=== PATIENT | female | born 1965 | race African-American/Black ===

== ENCOUNTER 2018-06-23 12:39 | Observation (INO) ==
[2018-06-23] MEDS ORDERED: Sod Chloride 0.9% Inj 1,000 ML IV.SIG ONE (12:56)
[2018-06-23] MEDS ORDERED: levETIRAcetam 1000mg/100mL Inj 100 ML IV.SIG ONE (12:58)
--- NOTE | 2018-06-23 13:14 | ED ---
HPI General Chief Complaint: Seizure Stated Complaint: seizure Time Seen by Provider: 06/23/18 12:47 Source: patient, family and RN notes reviewed Mode of arrival: wheelchair Limitations: no limitations History of Present Illness HPI Narrative: 53-year-old female presents to the emergency department for evaluation of seizures. Apparently, the patient had a seizure in triage. When she got to me, she is able to answer questions and get into the bed. The patient states that she has a history of seizures and is on Topamax and diazepam for seizures. Her son states that she recently moved from [place] and has been having intermittent seizures since Thursday. She also reports right-sided weakness since Thursday. Her son states that she went to the grocery store and came back limping on the right side. The patient reports history of lupus, seizures, TIAs. She takes a full aspirin daily. Patient is not following my commands at this time and is difficult to assess if she has any weakness. Moderate severity. MD complaint: Reports possible seizure Witnessed: yes - by other (Family) Trauma: No Seizure History: Reports known seizure disorder Place: home Related Data Home Medications Medication Instructions Recorded Confirmed albuterol sulfate [ProAir HFA] 2 puff INHALATION Q4H PRN 06/23/18 06/23/18 aspirin 325 mg PO DAILY 06/23/18 06/23/18 atorvastatin [Lipitor] 20 mg PO HS 06/23/18 06/23/18 uxcablaosh-ugdebqlcekhwr-moxb 1 cap PO Q4H PRN 06/23/18 06/23/18 [Fioricet] cholecalciferol (vitamin D3) 1,000 unit PO DAILY 06/23/18 06/23/18 [Vitamin D3] cyanocobalamin (vitamin B-12) 500 mcg PO DAILY 06/23/18 06/23/18 [Vitamin B-12] diazepam [Valium] 2 mg PO TID 06/23/18 06/23/18 duloxetine [Cymbalta] 60 mg PO DAILY 06/23/18 06/23/18 folic acid 0.8 mg PO DAILY 06/23/18 06/23/18 ibuprofen 800 mg PO TID 06/23/18 06/23/18 meloxicam [Mobic] 15 mg PO DAILY 06/23/18 06/23/18 montelukast [Singulair] 10 mg PO QPM 06/23/18 06/23/18 omeprazole 20 mg PO DAILY 06/23/18 06/23/18 oxycodone 10 mg PO QID 06/23/18 06/23/18 potassium 99 mg PO DAILY 06/23/18 06/23/18 pregabalin [Lyrica] 100 mg PO TID 06/23/18 06/23/18 rizatriptan 10 mg PO Q2-4H PRN 06/23/18 06/23/18 sucralfate [Carafate] 1 g PO TID 06/23/18 06/23/18 tizanidine 4 mg PO Q8HR 06/23/18 06/23/18 tofacitinib [Xeljanz] 5 mg PO BID 06/23/18 06/23/18 topiramate [Topamax] 300 mg PO TID 06/23/18 06/23/18 trazodone 100 mg PO HS 06/23/18 06/23/18 Allergies Allergy/AdvReac Type Severity Reaction Status Date / Time Fish Containing Products Allergy Severe Unverified 03/24/17 21:52 milk Allergy Severe INTOLERANCE Unverified 03/24/17 21:52 Review of Systems ROS: all other systems reviewed are negative PMFSH Medical History Medical History Seizure disorder (Acute) Social History Social History Substance History: No History of Abuse Second Hand Smoke Exposure: Yes Smoking Status: Current every day smoker Tobacco Type: Cigarettes How Often Do You Have a Drink Containing Alcohol: Never Recent Travel in [facility] within the Last 8 Weeks: No Recent Out of Country Travel within the Last 8 Weeks: No Immunization History Tetanus Immunization: Unsure Exam Narrative Exam Narrative: GENERAL: Well-nourished, well-developed female patient, afebrile. SKIN: Focused skin assessment warm/dry. HEAD: Normocephalic. Atraumatic. EYES: No scleral icterus. No injection or drainage. NECK: Supple, trachea midline. No JVD or lymphadenopathy. CARDIOVASCULAR: Regular rate and rhythm without murmurs, gallops, or rubs. RESPIRATORY: Breath sounds equal bilaterally. No accessory muscle use. Lung sounds are clear to auscultation. GASTROINTESTINAL: Abdomen soft, non-tender, nondistended. MUSCULOSKELETAL: No cyanosis, or edema. Patient will not follow commands, unable to determine strength. BACK: Nontender without obvious deformity. No CVA tenderness. Course Initial Documented Vital Signs Temperature 97.9 F 06/23/18 12:43 Pulse Rate 61 06/23/18 12:43 Respiratory Rate 15 06/23/18 12:43 Blood Pressure 137/72 06/23/18 12:43 Pulse Oximetry 98 06/23/18 12:43 Last Documented Vital Signs Temperature 97.9 F 06/23/18 12:43 Pulse Rate 65 06/23/18 12:56 Respiratory Rate 18 06/23/18 12:56 Blood Pressure 137/72 06/23/18 12:43 Pulse Oximetry 99 06/23/18 12:56 Medical Decision Making MDM Narrative Medical decision making narrative: 53-year-old female presents to the emergency department for evaluation of intermittent seizures since Thursday and right- sided weakness since Thursday. Patient was given Ativan 1 mg IV. After he left the exam room, the nurse reported the patient began to have another seizure again. However, she is able to talk and answer questions during the seizure requested more Ativan. When she was concerned that she is already given a dose of Ativan, she stopped seizing. Seizure versus pseudoseizure. EKG shows SR, HR 60, no acute ST changes. CBC is unremarkable. CMP shows no acute abnormality. Magnesium is 1.9. CK is 104. Troponin is less than 0.02. UA is negative. UDS is positive for barbiturates and benzodiazepines. CT of the head is negative. Patient will be admitted for right sided weakness, seizure vs. pseudoseizure. Medical Screen Exam Complete: Yes Emergency Medical Condition: Yes Lab Data Result diagrams: 06/23/18 13:00 06/23/18 13:00 Lab Results 06/23/18 06/23/18 06/23/18 Range/Units 13:00 13:00 13:00 WBC 6.8 (4.0-11.0) th/mm3 RBC 4.21 (4.00-5.30) mil/mm3 Hgb 11.7 (11.6-15.3) gm/dL Hct 36.5 (35.0-46.0) % MCV 86.6 (80.0-100.0) fL MCH 27.9 (27.0-34.0) pg MCHC 32.2 (32.0-36.0) % RDW 15.9 (11.6-17.2) % Plt Count 195 (150-450) th/mm3 MPV 9.8 (7.0-11.0) fL Neut % (Auto) 71.2 H (16.0-70.0) % Lymph % (Auto) 20.1 (9.0-44.0) % [place] % (Auto) 7.5 (0.0-8.0) % Eos % (Auto) 0.8 (0.0-4.0) % Baso % (Auto) 0.4 (0.0-2.0) % Neut # (Auto) 4.8 (1.8-7.7) th/mm3 Lymph # (Auto) 1.4 (1.0-4.8) th/mm3 [place] # (Auto) 0.5 (0.0-0.9) th/mm3 Eos # (Auto) 0.1 (0.0-0.4) th/mm3 Baso # (Auto) 0.0 (0.0-0.2) th/mm3 WBC Differential . Differential Comment Auto diff final Sodium 144 (136-145) meq/L Potassium 3.9 (3.5-5.1) meq/L Chloride 112 H (98-107) meq/L Carbon Dioxide 24.9 (21.0-32.0) meq/L Anion Gap 7 (5-15) meq/L BUN 12 (7-18) mg/dL Creatinine 0.96 (0.50-1.00) mg/dL Estimated GFR 74 L (>89) mL/min Random Glucose 84 (74-106) mg/dL Calcium 8.1 L (8.5-10.1) mg/dL Magnesium 1.9 (1.5-2.5) mg/dL Total Bilirubin 0.2 (0.2-1.0) mg/dL AST 13 L (15-37) U/L ALT 13 (10-53) U/L Alkaline Phosphatase 114 (45-117) U/L Total Creatine Kinase 104 (26-192) U/L CK-MB (CK-2) Less than 1.0 (0.5-3.6) ng/mL Troponin I Less than 0.02 L (0.02-0.05) ng/mL Total Protein 7.2 (6.4-8.2) g/dL Albumin 3.6 (3.4-5.0) g/dL Urine Color (Yellw/Straw) Urine Clarity (Clear) Urine pH (5.0-8.5) Ur Specific [place] (1.002-1.035) Urine Protein (Neg-Trace) mg/dL Urine Glucose (UA) (Negative) mg/dL Urine Ketones (Negative) mg/dL Urine Occult Blood (Negative) Urine Nitrate (Negative) Urine Bilirubin (Negative) Urine Urobilinogen (Less than 2) mg/dL Ur Leukocyte Esterase (Negative) Urine RBC (0-3) /hpf Urine WBC (0-5) /hpf Ur Squamous Epith Cells (0-5) /hpf Urine Mucus (Occasional) /lpf Ur Microscopic Review Urine Opiates Screen (Neg) Ur Barbiturates Screen (Neg) Ur Amphetamines Screen (Neg) U Benzodiazepines Scrn (Neg) Urine Cocaine Screen (Neg) U Cannabinoids Screen (Neg) 06/23/18 06/23/18 Range/Units 13:57 13:57 WBC (4.0-11.0) th/mm3 RBC (4.00-5.30) mil/mm3 Hgb (11.6-15.3) gm/dL Hct (35.0-46.0) % MCV (80.0-100.0) fL MCH (27.0-34.0) pg MCHC (32.0-36.0) % RDW (11.6-17.2) % Plt Count (150-450) th/mm3 MPV (7.0-11.0) fL Neut % (Auto) (16.0-70.0) % Lymph % (Auto) (9.0-44.0) % [place] % (Auto) (0.0-8.0) % Eos % (Auto) (0.0-4.0) % Baso % (Auto) (0.0-2.0) % Neut # (Auto) (1.8-7.7) th/mm3 Lymph # (Auto) (1.0-4.8) th/mm3 [place] # (Auto) (0.0-0.9) th/mm3 Eos # (Auto) (0.0-0.4) th/mm3 Baso # (Auto) (0.0-0.2) th/mm3 WBC Differential Differential Comment Sodium (136-145) meq/L Potassium (3.5-5.1) meq/L Chloride (98-107) meq/L Carbon Dioxide (21.0-32.0) meq/L Anion Gap (5-15) meq/L BUN (7-18) mg/dL Creatinine (0.50-1.00) mg/dL Estimated GFR (>89) mL/min Random Glucose (74-106) mg/dL Calcium (8.5-10.1) mg/dL Magnesium (1.5-2.5) mg/dL Total Bilirubin (0.2-1.0) mg/dL AST (15-37) U/L ALT (10-53) U/L Alkaline Phosphatase (45-117) U/L Total Creatine Kinase (26-192) U/L CK-MB (CK-2) (0.5-3.6) ng/mL Troponin I (0.02-0.05) ng/mL Total Protein (6.4-8.2) g/dL Albumin (3.4-5.0) g/dL Urine Color Yellow (Yellw/Straw) Urine Clarity Clear (Clear) Urine pH 5.0 (5.0-8.5) Ur Specific [place] 1.013 (1.002-1.035) Urine Protein Negative (Neg-Trace) mg/dL Urine Glucose (UA) Negative (Negative) mg/dL Urine Ketones Negative (Negative) mg/dL Urine Occult Blood Negative (Negative) Urine Nitrate Negative (Negative) Urine Bilirubin Negative (Negative) Urine Urobilinogen 2.0 H (Less than 2) mg/dL Ur Leukocyte Esterase Negative (Negative) Urine RBC Less than 1 (0-3) /hpf Urine WBC 1 (0-5) /hpf Ur Squamous Epith Cells <1 (0-5) /hpf Urine Mucus Few H (Occasional) /lpf Ur Microscopic Review Not Reportable Urine Opiates Screen Neg (Neg) Ur Barbiturates Screen Pos H (Neg) Ur Amphetamines Screen Neg (Neg) U Benzodiazepines Scrn Pos H (Neg) Urine Cocaine Screen Neg (Neg) U Cannabinoids Screen Neg (Neg) Imaging Data Radiologist's impression: Head CT 06/23/18 12:56 CONCLUSION: Negative noncontrast head CT. . Discharge Plan Discharge Disposition Patient Disposition: 30 Still Patient Discharge Details Diagnosis: Right sided weakness, Seizure Physicians Team ED Provider: Francois Fan ED Midlevel Provider: Lara Schroeder Primary Care Provider: Palak Caraballo Rxs /Orders / Referrals /Forms Prescriptions: No Action atorvastatin [Lipitor] 20 mg Tablet 20 mg PO HS RF: 0 aspirin 325 mg Tablet 325 mg PO DAILY RF: 0 ibuprofen 800 mg Tablet 800 mg PO TID RF: 0 tizanidine 4 mg Tablet 4 mg PO Q8HR RF: 0 meloxicam [Mobic] 15 mg Tablet 15 mg PO DAILY RF: 0 sucralfate [Carafate] 1 gram Tablet 1 g PO TID RF: 0 rizatriptan 10 mg Tablet 10 mg PO Q2-4H PRN (Reason: Migraine) RF: 0 potassium 99 mg Tablet 99 mg PO DAILY RF: 0 cyanocobalamin (vitamin B-12) [Vitamin B-12] 500 mcg Tablet 500 mcg PO DAILY RF: 0 trazodone 100 mg Tablet 100 mg PO HS RF: 0 diazepam [Valium] 2 mg Tablet 2 mg PO TID RF: 0 montelukast [Singulair] 10 mg Tablet 10 mg PO QPM RF: 0 albuterol sulfate [ProAir HFA] 90 mcg/actuation Hfa Aerosol Inhaler 2 puff INHALATION Q4H PRN (Reason: Shortness Of Breath Or Wheezing) RF: 0 topiramate [Topamax] 100 mg Tablet 300 mg PO TID RF: 0 folic acid 800 mcg Tablet 0.8 mg PO DAILY RF: 0 duloxetine [Cymbalta] 60 mg Capsule,Delayed Release(Dr/Ec) 60 mg PO DAILY RF: 0 pregabalin [Lyrica] 100 mg Capsule 100 mg PO TID RF: 0 cholecalciferol (vitamin D3) [Vitamin D3] 1,000 unit Tablet 1,000 unit PO DAILY RF: 0 omeprazole 20 mg Tablet,Delayed Release (Dr/Ec) 20 mg PO DAILY RF: 0 oxycodone 10 mg Tablet 10 mg PO QID RF: 0 mlgancbfnd-qcjwkgyvhiqyn-pzer [Fioricet] 50-300-40 mg Capsule 1 cap PO Q4H PRN (Reason: Migraine Headache) RF: 0 tofacitinib [Xeljanz] 5 mg Tablet 5 mg PO BID RF: 0 Status ED Status: Admitted Observation Patient
[2018-06-23 13:29] LABS: Baso % (Auto) 0.4 % (0.0-2.0); Eos # (Auto) 0.1 th/mm3 (0.0-0.4); Eos % (Auto) 0.8 % (0.0-4.0); Hematocrit 36.5 % (35.0-46.0); Hemoglobin 11.7 gm/dL (11.6-15.3); Lymph # (Auto) 1.4 th/mm3 (1.0-4.8); Lymph % (Auto) 20.1 % (9.0-44.0); Mean Corpuscular HGB Conc 32.2 % (32.0-36.0); Mean Corpuscular Hemoglobin 27.9 pg (27.0-34.0); Mean Corpuscular Volume 86.6 fL (80.0-100.0); Mean Platelet Volume 9.8 fL (7.0-11.0); Mono # (Auto) 0.5 th/mm3 (0.0-0.9); Mono % (Auto) 7.5 % (0.0-8.0); Neut # (Auto) 4.8 th/mm3 (1.8-7.7); Neut % (Auto) 71.2 % (16.0-70.0); Platelet Count 195 th/mm3 (150-450); Red Blood Count 4.21 mil/mm3 (4.00-5.30); Red Cell Distribution Width 15.9 % (11.6-17.2); White Blood Count 6.8 th/mm3 (4.0-11.0)
--- NOTE | 2018-06-23 13:37 | CT ---
EXAM DATE: 06/23/2018 1:31 PM EST AGE/SEX: 53 years / Female INDICATIONS: Seizure. CLINICAL DATA: This is the patient's initial encounter. Patient reports that signs and symptoms have been present for 4 - 6 days and indicates a pain score of 8/10. MEDICAL/SURGICAL HISTORY: Seizures. None. RADIATION DOSE: 56.35 CTDI (mGy) COMPARISON: No prior exams available for comparison. TECHNIQUE: CT of the head without contrast. Using automated exposure control and adjustment of the mA and/or kV according to patient size, radiation dose was kept as low as reasonably achievable to ob tain optimal diagnostic quality images. DICOM format image data is available electronically for revi ew and comparison. FINDINGS: Cerebrum: The ventricles are normal for age. No evidence of midline shift, mass lesion, hemorrhage or acute infarction. No extraaxial fluid collections are seen. Posterior Fossa: The cerebellum and brainstem are intact. The 4th ventricle is midline. The cerebe llopontine angle is unremarkable. Extracranial: The visualized portion of the orbits is intact. Skull: The calvaria is intact. No evidence of skull fracture. CONCLUSION: Negative noncontrast head CT. . Electronically signed by: Jessee Jones MD 06/23/2018 1:36 PM EST
[2018-06-23 13:47] LABS: Alanine Aminotransferase 13 U/L (10-53); Albumin 3.6 g/dL (3.4-5.0); Anion Gap 7 meq/L (5-15); Aspartate Aminotransferase 13 U/L (15-37); Blood Urea Nitrogen 12 mg/dL (7-18); Calcium 8.1 mg/dL (8.5-10.1); Carbon Dioxide 24.9 meq/L (21.0-32.0); Chloride 112 meq/L (98-107); Glomerular Filtration Rate 74 mL/min (>89); Glucose,Random 84 mg/dL (74-106); Sodium 144 meq/L (136-145)
[2018-06-23 13:48] LABS: Potassium 3.9 meq/L (3.5-5.1)
[2018-06-23 14:12] LABS: Alkaline Phosphatase 114 U/L (45-117); Creatine Kinase 104 U/L (26-192); Total Protein 7.2 g/dL (6.4-8.2)
[2018-06-23 14:30] LABS: Bilirubin,Urine Negative (Negative); Clarity,Urine Clear (Clear); Color,Urine Yellow (Yellw/Straw); Glucose,Urine (UA) Negative (Negative); Leukocyte Esterase,Urine Negative (Negative); Mucus,Urine Few /lpf (Occasional); Nitrite,Urine Negative (Negative); Specific Gravity,Urine 1.013 (1.002-1.035); Squamous Epithelial Cell,Urine <1 /hpf (0-5)
[2018-06-23 14:34] LABS: Amphetamine Screen,Urine Neg (Neg); Barbiturate Screen,Urine Pos (Neg); Cannabinoid Screen,Urine Neg (Neg); Cocaine Screen,Urine Neg (Neg)
[2018-06-23 14:40] LABS: Opiate Screen,Urine Neg (Neg)
--- NOTE | 2018-06-23 17:49 | P.HP ---
History of Present Illness Service: [facility] service Primary Care Physician: Palak Caraballo MD Chief Complaint: reported SZ History of Present Illness: Patient is a 53-year-old right-handed female with history of chronic pain, history of fibromyalgia, history of migraine headaches, history of hyperlipidemia, history of seizure disorder, history of lupus arthritis, who presented to the ER brought in by son for reported multiple episodes of seizures. Patient states this has been going on since Thursday. And denies any fever chills headache nausea vomiting. Patient states also on chronic pain and states that run out of her pain meds. Her primary care physician is Dr. Caraballo. Her plate painter apprentice Dr. Hurtado apparently discharged her from their practice recently. Patient at bedside is awake alert pretty independent up and ambulating with a walker with a cane along the hallway. Baseline had right upper extremity sided weakness with history of TIAs in the past. Patient now mainly asking for some pain meds. When we told about her about getting some workup states he had it done before and all everything was negative. Patient admitted overnight for observation. Home meds includes diazepam 2 mg as needed for seizure Diarrhea, 100 mg 3 times a day Trazodone 100 mg daily at bedtime Meloxicam 15 mg daily Montelukast 10 mg Pro-air 2 puffs every 6 Advair Fioricet Topamax Oxycodone 10 mg 4 times a day Zanaflex 4 mg every 8 Cymbalta 60 mg for fibromyalgia Omeprazole Folic acid Vitamin B12 Atorvastatin Aspirin Potassium Sucralfate Review of Systems Patient denies any fever denies any neck pain or nausea vomiting bowel movements regular denies any melena or hematochezia no incontinence baseline with right-sided weakness and ambulates with a cane PMFSH - History History Provided By: Patient - Medical History Medical History: Medical History (Last Updated 06/23/18 @ 12:57 by Priya Mancia RN) Seizure disorder - Tobacco History Second Hand Smoke Exposure: Yes Tobacco Use In Past 30 Days: Yes Smoking Status: Current every day smoker Tobacco Type: Cigarettes - Alcohol History How Often Do You Have a Drink Containing Alcohol: Never - Substance Use History Substance History: No History of Abuse - Travel History Recent Travel in the [place] Within the Last 8 Weeks: No Recent Travel Out of the Country Within the Last 8 Weeks: No - Immunization History Tetanus Immunization: Unsure Medications and Allergies Active Medications: Active Medications Sodium Chloride (Ns Flush) 2 ml IV.FLUSH PRN PRN PRN Reason: FLUSH AFTER USING IV ACCESS Allergies Allergy/AdvReac Type Severity Reaction Status Date / Time Fish Containing Products Allergy Severe Anaphylaxis Verified 06/24/18 14:17 milk Allergy Severe INTOLERANCE Verified 06/24/18 14:17 Home Medications Medication Instructions Recorded Confirmed Type albuterol sulfate [ProAir HFA] 2 puff INHALATION Q4H PRN 06/23/18 06/23/18 History aspirin 325 mg PO DAILY 06/23/18 06/23/18 History atorvastatin [Lipitor] 20 mg PO HS 06/23/18 06/23/18 History unecxgqvln-mgshnbwjbfqzp-bzma 1 cap PO Q4H PRN 06/23/18 06/23/18 History [Fioricet] cholecalciferol (vitamin D3) 1,000 unit PO DAILY 06/23/18 06/23/18 History [Vitamin D3] cyanocobalamin (vitamin B-12) 500 mcg PO DAILY 06/23/18 06/23/18 History [Vitamin B-12] diazepam [Valium] 2 mg PO TID 06/23/18 06/23/18 History duloxetine [Cymbalta] 60 mg PO DAILY 06/23/18 06/23/18 History folic acid 0.8 mg PO DAILY 06/23/18 06/23/18 History ibuprofen 800 mg PO TID 06/23/18 06/23/18 History meloxicam [Mobic] 15 mg PO DAILY 06/23/18 06/23/18 History montelukast [Singulair] 10 mg PO QPM 06/23/18 06/23/18 History omeprazole 20 mg PO DAILY 06/23/18 06/23/18 History oxycodone 10 mg PO QID 06/23/18 06/23/18 History potassium 99 mg PO DAILY 06/23/18 06/23/18 History pregabalin [Lyrica] 100 mg PO TID 06/23/18 06/23/18 History rizatriptan 10 mg PO Q2-4H PRN 06/23/18 06/23/18 History sucralfate [Carafate] 1 g PO TID 06/23/18 06/23/18 History tizanidine 4 mg PO Q8HR 06/23/18 06/23/18 History tofacitinib [Xeljanz] 5 mg PO BID 06/23/18 06/23/18 History topiramate [Topamax] 100 mg PO TID 06/23/18 06/23/18 History trazodone 100 mg PO HS 06/23/18 06/23/18 History Exam Vital signs: Vital Signs 06/23/18 12:43 06/23/18 12:56 06/23/18 16:00 Temperature 97.9 F 98.4 F Pulse Rate 61 65 53 L Respiratory Rate 15 18 12 Blood Pressure 137/72 140/67 Pulse Oximetry 98 99 98 Intake & Output 06/22/18 06/23/18 06/23/18 18:59 06:59 18:59 Intake Total 1000 / 1000 Balance 1000 / 1000 Weight 83.915 kg Intake: IV 1000 / 1000 NS Inj 1,000 ML @ Wide Open IV. 1000 / 1000 SIG BOLUS ONE Rx#:[id number] Narrative: Awake alert oriented x3 speech clear Anicteric sclerae pink palpebral conjunctivae No temporal tenderness Neck supple no nuchal rigidity Chest lungs bilateral breath sounds equal no rales Regular rhythm Abdomen soft good bowel sounds Extremities no edema no cyanosis no clubbing Neurologic exam ANO x3 clear speech Cranial nerves grossly intact Motor mild right-sided weakness 4/5 Gait ambulating along the hallway with a cane steady Results - Labs CBC & Chem 7: 06/23/18 13:00 06/25/18 05:58 Labs: Laboratory Results - last 24 hr 06/23/18 06/23/18 06/23/18 13:00 13:00 13:00 WBC 6.8 RBC 4.21 Hgb 11.7 Hct 36.5 MCV 86.6 MCH 27.9 MCHC 32.2 RDW 15.9 Plt Count 195 MPV 9.8 Neut % (Auto) 71.2 H Lymph % (Auto) 20.1 Lane % (Auto) 7.5 Eos % (Auto) 0.8 Baso % (Auto) 0.4 Neut # (Auto) 4.8 Lymph # (Auto) 1.4 Lane # (Auto) 0.5 Eos # (Auto) 0.1 Baso # (Auto) 0.0 WBC Differential . Differential Comment Auto diff final Sodium 144 Potassium 3.9 Chloride 112 H Carbon Dioxide 24.9 Anion Gap 7 BUN 12 Creatinine 0.96 Estimated GFR 74 L Random Glucose 84 Calcium 8.1 L Magnesium 1.9 Total Bilirubin 0.2 AST 13 L ALT 13 Alkaline Phosphatase 114 Total Creatine Kinase 104 CK-MB (CK-2) Less than 1.0 Troponin I Less than 0.02 L Total Protein 7.2 Albumin 3.6 Urine Color Urine Clarity Urine pH Ur Specific [place] Urine Protein Urine Glucose (UA) Urine Ketones Urine Occult Blood Urine Nitrate Urine Bilirubin Urine Urobilinogen Ur Leukocyte Esterase Urine RBC Urine WBC Ur Squamous Epith Cells Urine Mucus Ur Microscopic Review Urine Opiates Screen Ur Barbiturates Screen Ur Amphetamines Screen U Benzodiazepines Scrn Urine Cocaine Screen U Cannabinoids Screen 06/23/18 06/23/18 13:57 13:57 WBC RBC Hgb Hct MCV MCH MCHC RDW Plt Count MPV Neut % (Auto) Lymph % (Auto) Lane % (Auto) Eos % (Auto) Baso % (Auto) Neut # (Auto) Lymph # (Auto) Lane # (Auto) Eos # (Auto) Baso # (Auto) WBC Differential Differential Comment Sodium Potassium Chloride Carbon Dioxide Anion Gap BUN Creatinine Estimated GFR Random Glucose Calcium Magnesium Total Bilirubin AST ALT Alkaline Phosphatase Total Creatine Kinase CK-MB (CK-2) Troponin I Total Protein Albumin Urine Color Yellow Urine Clarity Clear Urine pH 5.0 Ur Specific [place] 1.013 Urine Protein Negative Urine Glucose (UA) Negative Urine Ketones Negative Urine Occult Blood Negative Urine Nitrate Negative Urine Bilirubin Negative Urine Urobilinogen 2.0 H Ur Leukocyte Esterase Negative Urine RBC Less than 1 Urine WBC 1 Ur Squamous Epith Cells <1 Urine Mucus Few H Ur Microscopic Review Not Reportable Urine Opiates Screen Neg Ur Barbiturates Screen Pos H Ur Amphetamines Screen Neg U Benzodiazepines Scrn Pos H Urine Cocaine Screen Neg U Cannabinoids Screen Neg - Imaging Impressions Head CT 06/23/18 12:56 CONCLUSION: Negative noncontrast head CT. . Caprini VTE Risk Assessment Caprini VTE Risk Assessment: No/Low Risk (score <= 1) Caprini Risk Assessment Model: Point Value = 1 Point Value = 2 Point Value = 3 Point Value = 5 Age 41-60 Minor surgery BMI > 25 kg/m2 Swollen legs Varicose veins or History of unexplained or recurrent spontaneous Oral contraceptives or hormone replacement Sepsis (< 1 month) Serious lung disease, including pneumonia (< 1 month) Abnormal pulmonary function Acute myocardial infarction Congestive heart failure (< 1 month) History of inflammatory bowel disease Medical patient at bed rest Age 61-74 Arthroscopic surgery Major open surgery (> 45 min) Laparoscopic surgery (> 45 min) Malignancy Confined to bed (> 72 hours) Immobilizing plaster cast Central venous access Age >= 75 History of VTE Family history of VTE Factor V Leiden Prothrombin [id number] Lupus anticoagulant Anticardiolipin antibodies Elevated serum homocysteine Heparin-induced thrombocytopenia Other congenital or acquired thrombophilia Stroke (< 1 month) Elective arthroplasty Hip, pelvis, or leg fracture Acute spinal cord injury (< 1 month) Prophylaxis Regimen: Total Risk Factor Score Risk Level Prophylaxis Regimen 0-1 Low Early ambulation 2 Moderate Order ONE of the following: *Sequential Compression Device (SCD) *Heparin 5000 units SQ BID 3-4 Higher Order ONE of the following medications: *Heparin 5000 units SQ TID *Enoxaparin/Lovenox 40 mg SQ daily (WT < 150 kg, CrCl > 30 mL/min) *Enoxaparin/Lovenox 30 mg SQ daily (WT < 150 kg, CrCl > 10-29 mL/min) *Enoxaparin/Lovenox 30 mg SQ BID (WT < 150 kg, CrCl > 30 mL/min) AND/OR *Sequential Compression Device (SCD) 5 or more Highest Order ONE of the following medications: *Heparin 5000 units SQ TID (Preferred with Epidurals) *Enoxaparin/Lovenox 40 mg SQ daily (WT < 150 kg, CrCl > 30 mL/min) *Enoxaparin/Lovenox 30 mg SQ daily (WT < 150 kg, CrCl > 10-29 mL/min) *Enoxaparin/Lovenox 30 mg SQ BID (WT < 150 kg, CrCl > 30 mL/min) AND *Sequential Compression Device (SCD) Assessment and Plan - Plan 53-year-old female presenting with Multiple seizure questionable pseudoseizures MId right sided weakness on exam- per patient this is near baseline Neurology consult Neurochecks. Get an MRI of the brain, check an EEG, History of migraine headaches continue meds History of lupus/chronic pain Continue on oxycodone as needed History of asthma/hyperreactive airway disease in remission Continue on inhalers. PT eval. If stable DC in a.m.-
--- NOTE | 2018-06-23 21:56 | MR ---
EXAM DATE: 06/23/2018 9:40 PM EST AGE/SEX: 53 years / Female INDICATIONS: Seizures. CLINICAL DATA: This is the patient's initial encounter. Patient reports that signs and symptoms have been present for 4 - 6 days and indicates a pain score of 0/10. MEDICAL/SURGICAL HISTORY: Hypertension. Lupus, Fibromyalgia, DM, Seizure, Asthma Hysterectomy. Bariatric, Cervical fusion, lumbar, Nerve ablation (lumbar) COMPARISON: [facility] – [place] HEAD W/O CONTRAST, 06/23/2018. . TECHNIQUE: Multiplanar, multisequence examination of the brain was performed without contrast. FINDINGS: The patient had a seizure during the scan, before all sequences were acquired. The study was termina katie at that point. The images that were acquired are of diagnostic quality and include T1 sagittal, F LAIR axial, T2 axial, and diffusion axial. The ventricles are normal in size. No evidence of midline shift. No evidence of cerebral edema or mas s effect. There are some scattered areas of T2 prolongation in the subcortical mid and high convexity white matter, nonspecific in appearance. No focal areas of restricted diffusion. The posterior fossa structures are grossly unremarkable. The pituitary gland is normal size. CONCLUSION: 1. Negative limited sequence noncontrast MRI of the brain. 2. The patient had a seizure during the scan and the study was terminated at that point. Electronically signed by: Hossein Dickerson MD 06/23/2018 9:55 PM EST
--- NOTE | 2018-06-23 22:01 | P.PN ---
Physical Exam Vital signs: Vital Signs 06/23/18 12:43 06/23/18 12:56 06/23/18 16:00 Temperature 97.9 F 98.4 F Pulse Rate 61 65 53 L Respiratory Rate 15 18 12 Blood Pressure 137/72 140/67 Pulse Oximetry 98 99 98 06/23/18 19:50 Temperature 98.1 F Pulse Rate 61 Respiratory Rate 14 Blood Pressure 132/76 Pulse Oximetry 99 Intake & Output 06/23/18 06/23/18 06/24/18 06:59 18:59 06:59 Intake Total 1000 / 1000 Balance 1000 / 1000 Weight 83.915 kg Intake: IV 1000 / 1000 NS Inj 1,000 ML @ Wide Open IV. 1000 / 1000 SIG BOLUS ONE Rx#:[id number] Other: # Voids 1 Narrative: Awake alert oriented x3 speech clear Anicteric sclerae pink palpebral conjunctivae No temporal tenderness Neck supple no nuchal rigidity Chest lungs bilateral breath sounds equal no rales Regular rhythm Abdomen soft good bowel sounds Extremities no edema no cyanosis no clubbing Neurologic exam ANO x3 clear speech Cranial nerves grossly intact Motor mild right-sided weakness 4/5 Gait ambulating along the hallway with a cane steady Results - Labs CBC & Chem 7: 06/23/18 13:00 06/23/18 13:00 Laboratory Results - last 24 hr 06/23/18 06/23/18 06/23/18 13:00 13:00 13:00 WBC 6.8 RBC 4.21 Hgb 11.7 Hct 36.5 MCV 86.6 MCH 27.9 MCHC 32.2 RDW 15.9 Plt Count 195 MPV 9.8 Neut % (Auto) 71.2 H Lymph % (Auto) 20.1 [place] % (Auto) 7.5 Eos % (Auto) 0.8 Baso % (Auto) 0.4 Neut # (Auto) 4.8 Lymph # (Auto) 1.4 [place] # (Auto) 0.5 Eos # (Auto) 0.1 Baso # (Auto) 0.0 WBC Differential . Differential Comment Auto diff final Sodium 144 Potassium 3.9 Chloride 112 H Carbon Dioxide 24.9 Anion Gap 7 BUN 12 Creatinine 0.96 Estimated GFR 74 L Random Glucose 84 Calcium 8.1 L Magnesium 1.9 Total Bilirubin 0.2 AST 13 L ALT 13 Alkaline Phosphatase 114 Total Creatine Kinase 104 CK-MB (CK-2) Less than 1.0 Troponin I Less than 0.02 L Total Protein 7.2 Albumin 3.6 Urine Color Urine Clarity Urine pH Ur Specific [place] Urine Protein Urine Glucose (UA) Urine Ketones Urine Occult Blood Urine Nitrate Urine Bilirubin Urine Urobilinogen Ur Leukocyte Esterase Urine RBC Urine WBC Ur Squamous Epith Cells Urine Mucus Ur Microscopic Review Urine Opiates Screen Ur Barbiturates Screen Ur Amphetamines Screen U Benzodiazepines Scrn Urine Cocaine Screen U Cannabinoids Screen 06/23/18 06/23/18 13:57 13:57 WBC RBC Hgb Hct MCV MCH MCHC RDW Plt Count MPV Neut % (Auto) Lymph % (Auto) [place] % (Auto) Eos % (Auto) Baso % (Auto) Neut # (Auto) Lymph # (Auto) [place] # (Auto) Eos # (Auto) Baso # (Auto) WBC Differential Differential Comment Sodium Potassium Chloride Carbon Dioxide Anion Gap BUN Creatinine Estimated GFR Random Glucose Calcium Magnesium Total Bilirubin AST ALT Alkaline Phosphatase Total Creatine Kinase CK-MB (CK-2) Troponin I Total Protein Albumin Urine Color Yellow Urine Clarity Clear Urine pH 5.0 Ur Specific [place] 1.013 Urine Protein Negative Urine Glucose (UA) Negative Urine Ketones Negative Urine Occult Blood Negative Urine Nitrate Negative Urine Bilirubin Negative Urine Urobilinogen 2.0 H Ur Leukocyte Esterase Negative Urine RBC Less than 1 Urine WBC 1 Ur Squamous Epith Cells <1 Urine Mucus Few H Ur Microscopic Review Not Reportable Urine Opiates Screen Neg Ur Barbiturates Screen Pos H Ur Amphetamines Screen Neg U Benzodiazepines Scrn Pos H Urine Cocaine Screen Neg U Cannabinoids Screen Neg - Imaging Impressions Head MRI 06/23/18 00:00 CONCLUSION: 1. Negative limited sequence noncontrast MRI of the brain. 2. The patient had a seizure during the scan and the study was terminated at that point. Head CT 06/23/18 12:56 CONCLUSION: Negative noncontrast head CT. . - Procedures none Assessment and Plan - Plan 53-year-old female presenting with Recurrent seizure vs pseudoseizures Neurology consult Neurochecks. Sz precautions Unremarkable MRI of the brain, check an EEG, Ct trileptal. Alesia did not work for her in the past History of migraine headaches continue meds History of lupus/chronic pain Continue on oxycodone as needed(claims she is on this med). Eforcse queried prescribed Fioricet #90 05/29/18 and Diazepam 2 mg #120 05/26/18 will dw Pain History of asthma/hyperreactive airway disease in remission Continue on inhalers. PT ginny. If stable DC in a.m. LMP
--- NOTE | 2018-06-23 22:09 | MB ---
cc: Delvis Nieves MD, PhD DATE: 06/23/2018 REASON FOR CONSULTATION: Seizures. HISTORY OF PRESENT ILLNESS: Ms. Baptiste is a 53-year-old female who states she has intermittent seizures where she can hear people talking to her but cannot get words out. She has had several of these since Thursday. She takes Topamax 100 mg t.i.d. for the seizures, but still has breakthrough. In the past, was on Keppra, but states that this did not work. She still had seizures even on Keppra therapy. PAST MEDICAL HISTORY: History of fibromyalgia, chronic pain, migraine headaches. MEDICATIONS AT HOME: 1. Diazepam 2 mg as needed for seizures. 2. Trazodone 100 mg at bedtime. 3. Topamax 100 mg t.i.d. 4. Oxycodone. 4. Cymbalta. 5. Zanaflex. 6. Vitamin B12. 7. Atorvastatin. 8. Aspirin. 9. Potassium. NEUROLOGICAL EXAMINATION: VITAL SIGNS: Blood pressure is 140/67, pulse 53, respirations are 12, temperature 98 degrees. NEUROLOGIC: Higher cortical functions are normal. Cranial nerves intact. Motor exam: She has mild weakness in the right arm and right leg compared with the left. Reflexes are symmetric. DIAGNOSTIC DATA: Head CT is negative. LABORATORY DATA: White count of 6800, hemoglobin 11.7, hematocrit 36.5%, platelet count 195,000. Sodium is 144, potassium 3.9, chloride 112, CO2 24.9, BUN is 12, creatinine 0.96, GFR 74, glucose 84. IMPRESSION: Possible seizures rule out pseudoseizures. RECOMMENDATION: I would like to get an MRI of the brain because of the right-sided weakness, EEG, also a trial of Trileptal. Delvis Nieves MD, PhD RIGO/bea , 08:27 PM , 08:31 PM
[2018-06-23] MEDS: OXcarbazepine 150 MG Tablet PO SCH (22:30)
[2018-06-23] MEDS: traZODone 100 MG Tablet PO SCH (22:30)
[2018-06-24 06:36] LABS: Calcium 8.7 mg/dL (8.5-10.1); Carbon Dioxide 26.5 meq/L (21.0-32.0); Magnesium 2.2 mg/dL (1.5-2.5)
[2018-06-24] MEDS: Butalbital/APAP/Caff 50/325/40 MG Tablet PO PRN ×2 (09:42→17:43)
[2018-06-24] MEDS: diazePAM 2 MG Tablet PO SCH ×3 (09:42→18:55)
[2018-06-24] MEDS: Aspirin 325 MG Tablet PO SCH (09:42)
[2018-06-24] MEDS: OXcarbazepine 150 MG Tablet PO SCH ×2 (09:43→21:52)
[2018-06-24] MEDS: Sucralfate 1 GM Tablet PO SCH ×3 (09:43→17:43)
[2018-06-24] MEDS: Pantoprazole Sodium 20 MG DR Tablet PO SCH (09:43)
[2018-06-24] MEDS: Duloxetine 60 MG DR Capsule PO SCH (09:43)
[2018-06-24] MEDS: Folic Acid 1 MG Tablet PO SCH (09:43)
[2018-06-24] MEDS: Topiramate 100 MG Tablet PO SCH ×3 (09:44→18:55)
--- NOTE | 2018-06-24 10:41 | P.PN ---
Subjective Interval history: Follow-up seizure. I was called by cardiac monitor technician patient having pseudoseizure. When I saw the patient, she was awake and oriented no post ictal state. Physical Exam Vital signs: Vital Signs 06/23/18 12:43 06/23/18 12:56 06/23/18 16:00 Temperature 97.9 F 98.4 F Pulse Rate 61 65 53 L Respiratory Rate 15 18 12 Blood Pressure 137/72 140/67 Pulse Oximetry 98 99 98 06/23/18 19:50 06/23/18 20:00 06/24/18 00:00 Temperature 98.1 F 97.7 F Pulse Rate 61 51 L Respiratory Rate 14 18 18 Blood Pressure 132/76 104/54 L Pulse Oximetry 99 95 95 06/24/18 03:20 06/24/18 07:06 Temperature 97.4 F L 98.5 F Pulse Rate 51 L 51 L Respiratory Rate 18 17 Blood Pressure 101/63 126/73 Pulse Oximetry 98 98 Intake & Output 06/23/18 06/24/18 06/24/18 18:59 06:59 18:59 Intake Total 1000 / 1000 Balance 1000 / 1000 Weight 83.915 kg Intake: IV 1000 / 1000 NS Inj 1,000 ML @ Wide Open IV. 1000 / 1000 SIG BOLUS ONE Rx#:[id number] Other: # Voids 1 Narrative: Awake alert oriented x3 speech clear Anicteric sclerae pink palpebral conjunctivae Neck supple no nuchal rigidity Chest lungs bilateral breath sounds equal no rales Regular rhythm Abdomen soft good bowel sounds Extremities no edema no cyanosis no clubbing Neurologic exam ANO x3 clear speech Cranial nerves grossly intact Motor mild right-sided weakness 4/5 Results - Labs CBC & Chem 7: 06/23/18 13:00 06/24/18 05:39 Laboratory Results - last 24 hr 06/23/18 06/23/18 06/23/18 13:00 13:00 13:00 WBC 6.8 RBC 4.21 Hgb 11.7 Hct 36.5 MCV 86.6 MCH 27.9 MCHC 32.2 RDW 15.9 Plt Count 195 MPV 9.8 Neut % (Auto) 71.2 H Lymph % (Auto) 20.1 [place] % (Auto) 7.5 Eos % (Auto) 0.8 Baso % (Auto) 0.4 Neut # (Auto) 4.8 Lymph # (Auto) 1.4 [place] # (Auto) 0.5 Eos # (Auto) 0.1 Baso # (Auto) 0.0 WBC Differential . Differential Comment Auto diff final Sodium 144 Potassium 3.9 Chloride 112 H Carbon Dioxide 24.9 Anion Gap 7 BUN 12 Creatinine 0.96 Estimated GFR 74 L Random Glucose 84 Calcium 8.1 L Magnesium 1.9 Total Bilirubin 0.2 AST 13 L ALT 13 Alkaline Phosphatase 114 Total Creatine Kinase 104 CK-MB (CK-2) Less than 1.0 Troponin I Less than 0.02 L Total Protein 7.2 Albumin 3.6 Urine Color Urine Clarity Urine pH Ur Specific [place] Urine Protein Urine Glucose (UA) Urine Ketones Urine Occult Blood Urine Nitrate Urine Bilirubin Urine Urobilinogen Ur Leukocyte Esterase Urine RBC Urine WBC Ur Squamous Epith Cells Urine Mucus Ur Microscopic Review Urine Opiates Screen Ur Barbiturates Screen Ur Amphetamines Screen U Benzodiazepines Scrn Urine Cocaine Screen U Cannabinoids Screen 06/23/18 06/23/18 06/24/18 13:57 13:57 05:39 WBC RBC Hgb Hct MCV MCH MCHC RDW Plt Count MPV Neut % (Auto) Lymph % (Auto) [place] % (Auto) Eos % (Auto) Baso % (Auto) Neut # (Auto) Lymph # (Auto) [place] # (Auto) Eos # (Auto) Baso # (Auto) WBC Differential Differential Comment Sodium 145 Potassium 4.0 Chloride 113 H Carbon Dioxide 26.5 Anion Gap 6 BUN 13 Creatinine 0.83 Estimated GFR 88 L Random Glucose 84 Calcium 8.7 Magnesium 2.2 Total Bilirubin AST ALT Alkaline Phosphatase Total Creatine Kinase 90 CK-MB (CK-2) Troponin I Total Protein Albumin Urine Color Yellow Urine Clarity Clear Urine pH 5.0 Ur Specific [place] 1.013 Urine Protein Negative Urine Glucose (UA) Negative Urine Ketones Negative Urine Occult Blood Negative Urine Nitrate Negative Urine Bilirubin Negative Urine Urobilinogen 2.0 H Ur Leukocyte Esterase Negative Urine RBC Less than 1 Urine WBC 1 Ur Squamous Epith Cells <1 Urine Mucus Few H Ur Microscopic Review Not Reportable Urine Opiates Screen Neg Ur Barbiturates Screen Pos H Ur Amphetamines Screen Neg U Benzodiazepines Scrn Pos H Urine Cocaine Screen Neg U Cannabinoids Screen Neg - Imaging Impressions Head MRI 06/23/18 00:00 CONCLUSION: 1. Negative limited sequence noncontrast MRI of the brain. 2. The patient had a seizure during the scan and the study was terminated at that point. Head CT 06/23/18 12:56 CONCLUSION: Negative noncontrast head CT. . - Procedures none Assessment and Plan - Plan 53-year-old female presenting with Recurrent seizure vs pseudoseizures Neurology consult Neurochecks. Sz precautions Unremarkable MRI of the brain, follow-up EEG Ct trileptal. Alesia did not work for her in the past History of migraine headaches continue meds History of lupus/chronic pain Continue on oxycodone as needed(claims she is on this med). Eforcse queried prescribed Fioricet #90 05/29/18 and Diazepam 2 mg #120 05/26/18 will dw Pain MD History of asthma/hyperreactive airway disease in remission Continue on inhalers. PT eval. If negative EEG, patient will be discharged home Discharge Planning: Discharge patient to home Condition on discharge: Improved Regular Diet as tolerated Ad [place] activity, no driving, swimming alone, climbing heights and carrying young children Rx written: Trileptal Follow-up with primary care physician and neurology
[2018-06-24] MEDS ORDERED: Montelukast 10 MG Tablet PO SCH (18:00)
--- NOTE | 2018-06-24 18:00 | ECG ---
Date Performed: 06/23/2018 Time Performed: 12:56:33 PTAGE: 53 years EKG: Sinus rhythm NORMAL ECG PREVIOUS TRACING : 12/03/2007 18.31 Since the previous tracing, no significant change noted DOCTOR: Brice Fuentes Interpretating Date/Time 06/24/2018 18:00:19
--- NOTE | 2018-06-24 21:41 | P.PNNEU ---
Subjective Subjective Comments: Patient states she had several seizures today during the eeg and during photic stimulation Active Medications: Active Medications Acetaminophen/Butalbital/Caffeine (Fioricet 50-325-40) 1 tab PO Q4H PRN PRN Reason: Migraine Headache Last Admin: 06/24/18 17:43 Dose: 1 tab Albuterol (Ventolin Hfa Inh) 2 puff INH Q4H PRN PRN Reason: Shortness Of Breath/WheezinG Aspirin (Aspirin) 325 mg PO DAILY FOR[facility], [facility] Last Admin: 06/24/18 09:42 Dose: 325 mg Atorvastatin Calcium (Lipitor) 20 mg PO HS [facility], [facility]1983 Last Admin: 06/23/18 22:30 Dose: 20 mg Cyanocobalamin (Vitamin B12) 500 mcg PO DAILY [facility], [facility]1983 Last Admin: 06/24/18 09:43 Dose: 500 mcg Diazepam (Valium) 2 mg PO TID [facility] Last Admin: 06/24/18 18:55 Dose: 2 mg Duloxetine HCl (Cymbalta) 60 mg PO DAILY [facility] Last Admin: 06/24/18 09:43 Dose: 60 mg Folic Acid (Folic Acid) 1 mg PO DAILY [facility] Last Admin: 06/24/18 09:43 Dose: 1 mg Lorazepam (Ativan Inj) 1 mg IV.PUSH Q4H PRN PRN Reason: SEIZURES Miscellaneous (Pill Splitter) 1 each OTHER UNSCH PRN PRN Reason: PILL SPLITTER Montelukast Sodium (Singulair) 10 mg PO QPM [facility], [facility] Last Admin: 06/24/18 18:54 Dose: 10 mg Oxcarbazepine (Trileptal) 150 mg PO BID [facility] Last Admin: 06/24/18 09:43 Dose: 150 mg Oxycodone HCl (Roxicodone) 10 mg PO Q8H PRN PRN Reason: PAIN SCALE 6 TO 10 Pantoprazole Sodium (Protonix) 20 mg PO DAILY [facility] Last Admin: 06/24/18 09:43 Dose: 20 mg Pregabalin (Lyrica) 100 mg PO TID [facility] Last Admin: 06/24/18 18:54 Dose: 100 mg Sodium Chloride (Ns Flush) 2 ml IV.FLUSH PRN PRN PRN Reason: FLUSH AFTER USING IV ACCESS Sucralfate (Carafate) 1 gm PO TID [facility] Last Admin: 06/24/18 17:43 Dose: 1 gm Tizanidine HCl (Zanaflex) 4 mg PO Q8HR [facility] Last Admin: 06/24/18 13:40 Dose: 4 mg Topiramate (Topamax) 100 mg PO TID [facility] Last Admin: 06/24/18 18:55 Dose: 100 mg Trazodone HCl (Desyrel) 100 mg PO HS [facility] Last Admin: 06/23/18 22:30 Dose: 100 mg Vitamin D (Vitamin D3) 1,000 unit PO DAILY [facility] Last Admin: 06/24/18 09:42 Dose: 1,000 unit Allergies/Adverse Reactions: Allergies Allergy/AdvReac Type Severity Reaction Status Date / Time Fish Containing Products Allergy Severe Anaphylaxis Verified 06/24/18 14:17 milk Allergy Severe INTOLERANCE Verified 06/24/18 14:17 Physical Exam Vital signs: Vital Signs 06/24/18 00:00 06/24/18 03:20 06/24/18 07:06 Temperature 97.7 F 97.4 F L 98.5 F Pulse Rate 51 L 51 L 51 L Respiratory Rate 18 18 17 Blood Pressure 104/54 L 101/63 126/73 Pulse Oximetry 95 98 98 06/24/18 10:15 06/24/18 10:53 06/24/18 12:00 Temperature 98.0 F Pulse Rate 71 70 Respiratory Rate 16 Blood Pressure 121/61 Pulse Oximetry 98 97 06/24/18 16:36 06/24/18 19:32 Temperature 98.3 F 98.4 F Pulse Rate 54 L 76 Respiratory Rate 18 17 Blood Pressure 132/70 118/58 L Pulse Oximetry 97 98 Intake & Output 06/24/18 06/24/18 06/25/18 06:59 18:59 06:59 Intake Total 370 / 370 Balance 370 / 370 Weight 83.915 kg Intake: Oral 370 / 370 Other: Weight On Admission 83.915 kg - Routine Neurological Exam Present: alert, oriented X3, CN II-XII intact, altered mental status, moving all extremities, normal tone Objective Radiology Results: MRI brain is normal EEG---I do not see epileptiform discharges on the eeg during her "seizure" Laboratory Results - last 24 hr 06/24/18 05:39 Sodium 145 Potassium 4.0 Chloride 113 H Carbon Dioxide 26.5 Anion Gap 6 BUN 13 Creatinine 0.83 Estimated GFR 88 L Random Glucose 84 Calcium 8.7 Magnesium 2.2 Total Creatine Kinase 90 Review/Management - Review/Management Plan: THe negative EEG during the event is consistent with nonepileptic seizures, or pseudoseizures will dc pipoptal recommend psychiatry evaluation.
[2018-06-24] MEDS: traZODone 100 MG Tablet PO SCH (22:32)
--- NOTE | 2018-06-24 23:02 | MG ---
cc: Bin Mayes MD ELECTROENCEPHALOGRAM RECORD NUMBER: [id number] DESCRIPTION: Well-formed 9-10 Hz alpha activity, 20-40 microvolts. Good anterior to posterior gradient. Eye movement artifact occurring off and on. Eyelid fluttering artifact occurring in the frontal channels during photic stimulation with normal background posterior rhythms, followed by split sway electrode artifact, myogenic artifact. The patient is shaking her upper body, epoch 45, with some movement artifact, normal posterior rhythm. Episode of eyelid fluttering occurring again, epoch 73, resulting in some frontal artifact, normal posterior rhythm. Body movement artifact occurring. Single-lead EKG showing sinus rhythm. INTERPRETATION: Episodes of eye fluttering with body movement without any epileptic correlation and appear to be nonepileptic events. Otherwise, normal electroencephalogram. Clinical correlation. MD VERNELL Hines/gus , 10:30 PM , 10:35 PM
[2018-06-24 23:49] VITALS: O2SAT 99
[2018-06-25 04:44] VITALS: BP 116/56; PULSE 54; RESP 16; TEMP 97.7
[2018-06-25 07:59] LABS: Alanine Aminotransferase 12 U/L (10-53); Albumin 3.2 g/dL (3.4-5.0); Anion Gap 7 meq/L (5-15); Aspartate Aminotransferase 10 U/L (15-37); Blood Urea Nitrogen 13 mg/dL (7-18); Calcium 8.3 mg/dL (8.5-10.1); Carbon Dioxide 25.9 meq/L (21.0-32.0); Chloride 112 meq/L (98-107); Glomerular Filtration Rate 80 mL/min (>89); Glucose,Random 81 mg/dL (74-106); Magnesium 2.1 mg/dL (1.5-2.5); Potassium 3.7 meq/L (3.5-5.1); Sodium 145 meq/L (136-145)
[2018-06-25 08:02] LABS: Alkaline Phosphatase 98 U/L (45-117); Total Protein 6.5 g/dL (6.4-8.2)
[2018-06-25] MEDS: diazePAM 2 MG Tablet PO SCH (08:34)
[2018-06-25] MEDS: Topiramate 100 MG Tablet PO SCH (08:34)
[2018-06-25] MEDS: Pantoprazole Sodium 20 MG DR Tablet PO SCH (08:34)
[2018-06-25] MEDS: Folic Acid 1 MG Tablet PO SCH (08:34)
[2018-06-25] MEDS: Aspirin 325 MG Tablet PO SCH (08:34)
[2018-06-25] MEDS: Butalbital/APAP/Caff 50/325/40 MG Tablet PO PRN (08:35)
[2018-06-25] MEDS: Duloxetine 60 MG DR Capsule PO SCH (08:35)
[2018-06-25] MEDS: Sucralfate 1 GM Tablet PO SCH (08:35)
--- NOTE | 2018-06-25 08:43 | P.PN ---
Subjective Interval history: Follow-up pseudoseizures. States she does not have any psychiatric history. Was evaluated by psychiatry per neurology recommendation secondary to pseudoseizures. She does not have any complaints wants to go home today Physical Exam Vital signs: Vital Signs 06/24/18 10:15 06/24/18 10:53 06/24/18 12:00 Temperature 98.0 F Pulse Rate 71 70 Respiratory Rate 16 Blood Pressure 121/61 Pulse Oximetry 98 97 06/24/18 16:36 06/24/18 19:32 06/24/18 23:46 Temperature 98.3 F 98.4 F 97.9 F Pulse Rate 54 L 76 58 L Respiratory Rate 18 17 14 Blood Pressure 132/70 118/58 L 128/70 Pulse Oximetry 97 98 99 06/25/18 04:42 Temperature 97.7 F Pulse Rate 54 L Respiratory Rate 16 Blood Pressure 116/56 L Pulse Oximetry 99 Intake & Output 06/24/18 06/25/18 06/25/18 18:59 06:59 18:59 Intake Total 370 / 370 Balance 370 / 370 Weight 83.915 kg Intake: Oral 370 / 370 Other: Weight On Admission 83.915 kg Narrative: Awake alert oriented x3 speech clear Neck supple no nuchal rigidity Chest lungs bilateral breath sounds equal no rales Regular rhythm Abdomen soft good bowel sounds Extremities no edema no cyanosis no clubbing Neurologic exam ANO x3 clear speech Cranial nerves grossly intact Motor mild right-sided weakness 4/5 Gait ambulating along the hallway Results - Labs CBC & Chem 7: 06/23/18 13:00 06/25/18 05:58 Laboratory Results - last 24 hr 06/25/18 05:58 Sodium 145 Potassium 3.7 Chloride 112 H Carbon Dioxide 25.9 Anion Gap 7 BUN 13 Creatinine 0.90 Estimated GFR 80 L Random Glucose 81 Calcium 8.3 L Magnesium 2.1 Total Bilirubin Less than 0.1 L AST 10 L ALT 12 Alkaline Phosphatase 98 Total Protein 6.5 D Albumin 3.2 L - Imaging ITS Impressions Head MRI 06/23/18 00:00 CONCLUSION: 1. Negative limited sequence noncontrast MRI of the brain. 2. The patient had a seizure during the scan and the study was terminated at that point. Head CT 06/23/18 12:56 CONCLUSION: Negative noncontrast head CT. . - Procedures none Assessment and Plan - Plan 53-year-old female presenting with Pseudoseizures Neurology recommended psychiatry evaluation and discontinued Trileptal Psychiatry recommended psychotherapy Neurochecks. Sz precautions Unremarkable MRI of the brain and EEG History of migraine headaches continue meds History of lupus/chronic pain Continue on oxycodone as needed(claims she is on this med). Eforcse queried prescribed Fioricet #90 05/29/18 and Diazepam 2 mg #120 05/26/18 will dw Pain MD History of asthma/hyperreactive airway disease in remission Continue on inhalers. DVT prophylaxis with SCD and early ambulation Discharge Planning: Discharge patient to home Condition on discharge: Improved Regular Diet as tolerated Ad [place] activity, no driving, swimming alone, climbing heights and carrying young children Rx written: none Follow-up with primary care physician and neurology
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
== END 2018-06-25 09:30 | disposition home or self-care (01) ==
LOC: NEDA 12:39 → NEPC 12:39 → NEPFCDU 15:50
PROVIDERS: ADMIT Internal Medicine; ATTEND Internal Medicine
DX: J45.909 Unspecified asthma, uncomplicated; G40.909 Epilepsy, unspecified, not intractable, without status epilepticus; Z86.73 Personal history of transient ischemic attack (TIA), and cerebral infarction without residual deficits; Z79.1 Long term (current) use of non-steroidal anti-inflammatories (NSAID); Z79.899 Other long term (current) drug therapy; F41.9 Anxiety disorder, unspecified; G43.909 Migraine, unspecified, not intractable, without status migrainosus; F17.210 Nicotine dependence, cigarettes, uncomplicated; Z79.82 Long term (current) use of aspirin; G89.29 Other chronic pain; M79.7 Fibromyalgia; E78.5 Hyperlipidemia, unspecified; R53.1 Weakness